=== PATIENT | female | born 1965 | race Hispanic/Latino ===

== ENCOUNTER 2017-05-12 11:06 | Inpatient (IN) | payer OTHER, MEDICARE ==
[~2017-05-12] VITALS: Ht 157.5 cm; Wt 82.0 kg
[~2017-05-12 11:06] MED LIST: GABA-531 PO; METR500T PO; QUET300T44 PO; SERT100T12 PO; Simethicone PO
[2017-05-12 11:30] LABS: APPEARANCE,URINE Clear (CLEAR); BILIRUBIN,URINE Negative (NEGATIVE); COLOR,URINE Dark Yellow (YELLOW); GLUCOSE, URINE (UA) Negative (NEGATIVE); KETONES,URINE Negative (NEGATIVE); LEUKOCYTE ESTERASE ,URINE Trace (NEGATIVE); NITRATE,URINE Negative (NEGATIVE); OCCULT BLOOD,URINE Negative (NEGATIVE); PH,URINE 5.5 (5.0-8.0); PROTEIN,URINE Negative (NEGATIVE)
[2017-05-12 11:35] LABS: BASOPHILS % (AUTO) 0.3 % (0.0-5.0); EOSINOPHILS % (AUTO) 1.2 % (0.0-8.0); HEMATOCRIT 41.1 % (36-48); LYMPHOCYTES % (AUTO) 17.2 % (21.0-51.0); MEAN CORPUSCULAR HEMOGLOBIN 30.9 pg (27.0-33.0); MEAN CORPUSCULAR HGB CONC 34.9 g/dL (32.0-36.0); MEAN CORPUSCULAR VOLUME 88.5 fL (79-99); MONOCYTES % (AUTO) 5.5 % (3.0-13.0); NEUTROPHILS % (AUTO) 75.8 % (40.0-77.0); PLATELET COUNT (AUTO) 246 K/uL (130-400); RED BLOOD CELL COUNT(AUTO) 4.65 MIL/uL (4.00-5.50); RED CELL DISTRIBUTION WIDTH 13.1 % (11.0-15.5); WHITE BLOOD COUNT (AUTO) 17.2 K/uL (4.8-10.8)
[2017-05-12] MEDS ORDERED: KETOROLAC TROMETHAMINE 30MG/ML ONE (11:40)
[2017-05-12] MEDS ORDERED: ONDANSETRON HCL 4 MG/2 ML VIAL ONE (11:40)
[2017-05-12] MEDS ORDERED: SODIUM CHLORIDE 0.9% 1000ML 1,000 ML IV ONE (11:40)
[2017-05-12 11:42] LABS: CREATININE 0.8 mg/dL (0.5-1.5); POTASSIUM 3.6 mmol/L (3.5-5.1)
[2017-05-12 11:43] LABS: BACTERIA,URINE Rare /HPF (None Seen); MUCUS,URINE Many LPF (None Seen); RBC,URINE 0-1 /HPF (0-1); SQUAMOUS EPITHELIAL CELL,UR Rare /LPF (0-2); WBC,URINE 0-1 /HPF (0-1)
[2017-05-12 11:47] LABS: ALBUMIN 3.5 g/dL (3.5-5.0); BILIRUBIN,TOTAL 0.9 mg/dL (0.2-1.0); TOTAL PROTEIN, SERUM 7.9 g/dL (6.0-8.3)
[2017-05-12] MEDS ORDERED: METRONIDAZOLE 500MG/100ML BAG 100 ML ONE ×2 (13:37→21:48)
[2017-05-12] MEDS ORDERED: MORPHINE SULFATE 2 MG/ML 1ML SYG ONE ×4 (13:38→21:49)
[2017-05-12] MEDS ORDERED: DICYCLOMINE HCL 10 MG/ML 2ML AMP IM ONE (14:46)
[2017-05-12] MEDS ORDERED: DICYCLOMINE HCL 20 MG TAB ONE (14:50)
[2017-05-12] MEDS ORDERED: LEVOFLOXACIN 500 MG/D5W 100 ML 100 ML ONE (14:54)
[2017-05-12] MEDS ORDERED: ACETAMINOPHEN 325 MG TAB ONE (23:14)
[2017-05-12 23:22] VITALS: BP 136/88
[2017-05-12] MEDS ORDERED: MORPHINE-NS 50 MG/50 ML 50 ML IV ONE (23:31)
[2017-05-13] MEDS ORDERED: MAG HYDROX/AL HYDROX/SIMETH ES 30 ML SUSP UDCUP PO PRN (01:15)
[2017-05-13] MEDS ORDERED: POTASSIUM CHLORIDE 20MEQ/100ML 100 ML IV PRN (01:15)
[2017-05-13] MEDS ORDERED: ACETAMINOPHEN 325 MG TAB PO PRN ×2 (01:15)
[2017-05-13] MEDS ORDERED: POTASSIUM CHLORIDE 20 MEQ ERTAB PO PRN (01:15)
[2017-05-13] MEDS: SODIUM CHLORIDE 0.9% 1000ML 1,000 ML IV SCH ×2 (01:15→05:47)
[2017-05-13] MEDS ORDERED: CLONIDINE HCL 0.1 MG TABLET PO PRN (01:15)
[2017-05-13] MEDS ORDERED: GUAIFENESIN-DM 200/20 MG 10 ML PO PRN (01:15)
[2017-05-13] MEDS ORDERED: LIDOCAINE HCL-MPF 1% 2ML VIAL IJ PRN (01:15)
[2017-05-13] MEDS ORDERED: NITROGLYCERIN 0.4 MG SL TAB SL PRN (01:15)
[2017-05-13] MEDS ORDERED: GUAIFENESIN SUGAR-FREE 100 MG/5 ML UDCUP PO PRN (01:15)
[2017-05-13] MEDS ORDERED: LACTULOSE 20 GM/30 ML UDCUP PO PRN (01:15)
[2017-05-13] MEDS ORDERED: POTASSIUM CHLORIDE 10% ELIXIR 20 MEQ/15 ML UDCUP PO PRN (01:15)
[2017-05-13] MEDS ORDERED: ONDANSETRON HCL 4 MG/2 ML VIAL IVP PRN (01:15)
[2017-05-13] MEDS ORDERED: ZOLPIDEM TARTRATE 5 MG TAB PO PRN (01:15)
[2017-05-13] MEDS ORDERED: DiphenhydrAMINE HCL 50 MG/ML VIAL IVP PRN (01:15)
[2017-05-13] MEDS ORDERED: DIPHENHYDRAMINE HCL 25 MG CAPSULE PO PRN (01:15)
[2017-05-13] MEDS ORDERED: MORPHINE-NS 50 MG/50 ML 50 ML IV PRN (01:30)
[2017-05-13] MEDS ORDERED: NALOXONE HCL 0.4 MG/1 ML ML IVP PRN (01:30)
[2017-05-13] MEDS: METRONIDAZOLE 500MG/100ML BAG 100 ML IVPB SCH ×3 (01:30→18:14)
[2017-05-13 03:05] VITALS: BP 102/67
[2017-05-13 04:16] LABS: HEMATOCRIT 34.8 % (36-48); MEAN CORPUSCULAR HEMOGLOBIN 31.4 pg (27.0-33.0); MEAN CORPUSCULAR HGB CONC 35.4 g/dL (32.0-36.0); MEAN CORPUSCULAR VOLUME 88.6 fL (79-99); PLATELET COUNT (AUTO) 219 K/uL (130-400); RED BLOOD CELL COUNT(AUTO) 3.92 MIL/uL (4.00-5.50); RED CELL DISTRIBUTION WIDTH 13.2 % (11.0-15.5); WHITE BLOOD COUNT (AUTO) 12.5 K/uL (4.8-10.8)
[2017-05-13 04:21] LABS: CREATININE 0.8 mg/dL (0.5-1.5); POTASSIUM 3.7 mmol/L (3.5-5.1)
[2017-05-13 07:00] VITALS: BP 111/63
[2017-05-13 11:05] VITALS: BP 105/73
[2017-05-13] MEDS ORDERED: LEVOFLOXACIN 500 MG/D5W 100 ML 100 ML IV SCH (13:00)
[2017-05-13 15:00] VITALS: BP 116/78
[2017-05-13 19:42] VITALS: BP 128/83
[2017-05-14 00:11] VITALS: BP 128/76
[2017-05-14] MEDS ORDERED: KETOROLAC TROMETHAMINE 30MG/ML IV PRN (00:45)
[2017-05-14] MEDS: METRONIDAZOLE 500MG/100ML BAG 100 ML IVPB SCH ×3 (01:18→19:27)
[2017-05-14] MEDS: ZOSYN 3.375GM+NS 50ML 50 ML IV SCH ×3 (01:18→19:27)
[2017-05-14 03:30] VITALS: BP 112/74
[2017-05-14] MEDS: SODIUM CHLORIDE 0.9% 1000ML 1,000 ML IV SCH ×2 (04:55→17:15)
[2017-05-14 05:01] LABS: HEMATOCRIT 35.7 % (36-48); MEAN CORPUSCULAR HEMOGLOBIN 30.8 pg (27.0-33.0); MEAN CORPUSCULAR HGB CONC 34.6 g/dL (32.0-36.0); PLATELET COUNT (AUTO) 246 K/uL (130-400); RED BLOOD CELL COUNT(AUTO) 4.01 MIL/uL (4.00-5.50); RED CELL DISTRIBUTION WIDTH 12.8 % (11.0-15.5); WHITE BLOOD COUNT (AUTO) 9.1 K/uL (4.8-10.8)
[2017-05-14 05:17] LABS: ALBUMIN 2.7 g/dL (3.5-5.0); BILIRUBIN,TOTAL 0.4 mg/dL (0.2-1.0); CREATININE 0.8 mg/dL (0.5-1.5); POTASSIUM 3.3 mmol/L (3.5-5.1); TOTAL PROTEIN, SERUM 6.7 g/dL (6.0-8.3)
[2017-05-14 08:00] VITALS: BP 106/55
[2017-05-14] MEDS ORDERED: LIDOCAINE HCL-MPF 1% 2ML VIAL IJ PRN (08:00)
[2017-05-14] MEDS ORDERED: POTASSIUM CHLORIDE 20MEQ/100ML 100 ML IV PRN (08:00)
[2017-05-14] MEDS ORDERED: POTASSIUM CHLORIDE 10% ELIXIR 20 MEQ/15 ML UDCUP PO PRN (08:00)
[2017-05-14 12:00] VITALS: BP 121/65
[2017-05-14 16:00] VITALS: BP 129/70
[2017-05-14 20:00] VITALS: BP 124/73
[2017-05-15] VITALS (7 sets, daily range): BP systolic 96–157; BP diastolic 50–91
[2017-05-15] MEDS: ZOSYN 3.375GM+NS 50ML 50 ML IV SCH ×4 (01:00→16:34)
[2017-05-15] MEDS: METRONIDAZOLE 500MG/100ML BAG 100 ML IVPB SCH ×3 (04:01→21:02)
[2017-05-15] MEDS: SODIUM CHLORIDE 0.9% 1000ML 1,000 ML IV SCH ×2 (06:51→19:55)
[2017-05-16] MEDS: METRONIDAZOLE 500MG/100ML BAG 100 ML IVPB SCH ×3 (01:11→17:38)
[2017-05-16] MEDS: ZOSYN 3.375GM+NS 50ML 50 ML IV SCH ×3 (01:11→17:38)
[2017-05-16 04:00] VITALS: BP 119/73
[2017-05-16 06:50] LABS: HEMATOCRIT 36.4 % (36-48); MEAN CORPUSCULAR HEMOGLOBIN 30.8 pg (27.0-33.0); MEAN CORPUSCULAR HGB CONC 34.7 g/dL (32.0-36.0); MEAN CORPUSCULAR VOLUME 88.8 fL (79-99); NUCLEATED RED BLOOD CELLS 0.1 % (0.0-0.19); PLATELET COUNT (AUTO) 327 K/uL (130-400); RED CELL DISTRIBUTION WIDTH 12.6 % (11.0-15.5)
[2017-05-16 07:07] LABS: ALBUMIN 2.8 g/dL (3.5-5.0); BILIRUBIN,TOTAL 0.4 mg/dL (0.2-1.0); CREATININE 0.9 mg/dL (0.5-1.5); POTASSIUM 3.4 mmol/L (3.5-5.1); TOTAL PROTEIN, SERUM 6.6 g/dL (6.0-8.3)
[2017-05-16 08:00] VITALS: BP 133/76
[2017-05-16] MEDS ORDERED: SERT100T12 PO (10:03)
[2017-05-16] MEDS ORDERED: GABA-531 PO (10:03)
[2017-05-16] MEDS ORDERED: QUET300T44 PO (10:03)
[2017-05-16] MEDS ORDERED: GABAPENTIN 300 MG CAPSULE PO PRN (10:15)
[2017-05-16] MEDS ORDERED: NON-FORMULARY MEDICATION 1 EACH (Sertraline HCl 200 MG) PO PRN (10:15)
[2017-05-16] MEDS ORDERED: QUETIAPINE FUMARATE 100 MG TAB PO PRN (10:15)
[2017-05-16 12:00] VITALS: BP 132/78
[2017-05-16 16:00] VITALS: BP 142/70
[2017-05-16] MEDS: POTASSIUM CHLORIDE 20 MEQ ERTAB PO PRN (17:37)
[2017-05-16 20:00] VITALS: BP 133/88
[2017-05-16] MEDS: SODIUM CHLORIDE 0.9% 1000ML 1,000 ML IV SCH ×2 (22:35→22:46)
[2017-05-16 23:43] VITALS: BP 140/81
[2017-05-17 03:52] VITALS: BP 148/91
[2017-05-17 05:28] LABS: HEMATOCRIT 37.6 % (36-48); MEAN CORPUSCULAR HEMOGLOBIN 30.3 pg (27.0-33.0); MEAN CORPUSCULAR HGB CONC 34.5 g/dL (32.0-36.0); MEAN CORPUSCULAR VOLUME 87.9 fL (79-99); PLATELET COUNT (AUTO) 321 K/uL (130-400); RED BLOOD CELL COUNT(AUTO) 4.27 MIL/uL (4.00-5.50); RED CELL DISTRIBUTION WIDTH 13.1 % (11.0-15.5); WHITE BLOOD COUNT (AUTO) 8.6 K/uL (4.8-10.8)
[2017-05-17 05:46] LABS: BILIRUBIN,TOTAL 0.3 mg/dL (0.2-1.0); CREATININE 0.8 mg/dL (0.5-1.5); POTASSIUM 3.6 mmol/L (3.5-5.1); TOTAL PROTEIN, SERUM 6.7 g/dL (6.0-8.3)
[2017-05-17] MEDS: ZOSYN 3.375GM+NS 50ML 50 ML IV SCH ×3 (07:17→17:41)
[2017-05-17] MEDS: METRONIDAZOLE 500MG/100ML BAG 100 ML IVPB SCH ×3 (07:17→16:46)
[2017-05-17 07:59] VITALS: BP 141/87
[2017-05-17] MEDS: POTASSIUM CHLORIDE 20 MEQ ERTAB PO PRN ×2 (09:15→12:06)
[2017-05-17 11:56] VITALS: BP 137/86
[2017-05-17] MEDS: SODIUM CHLORIDE 0.9% 1000ML 1,000 ML IV SCH (12:06)
[2017-05-17 15:58] VITALS: BP 127/73
[2017-05-17 20:00] VITALS: BP 117/85
[2017-05-17 23:39] VITALS: BP 133/71
[2017-05-18] MEDS: ZOSYN 3.375GM+NS 50ML 50 ML IV SCH ×2 (01:21→09:00)
[2017-05-18] MEDS: SODIUM CHLORIDE 0.9% 1000ML 1,000 ML IV SCH (01:21)
[2017-05-18] MEDS: METRONIDAZOLE 500MG/100ML BAG 100 ML IVPB SCH ×2 (01:21→09:29)
[2017-05-18 03:52] VITALS: BP 151/89
[2017-05-18 08:00] VITALS: BP 140/87
== END 2017-05-18 10:15 | disposition home or self-care (01) | DRG 872 ==
LOC: EDH 11:06 → EDHIP 13:53 → 3CH 21:55
PROVIDERS: ADMIT Internal Medicine; ATTEND Internal Medicine
DX: A41.9 Sepsis, unspecified organism (principal); K57.92 Diverticulitis of intestine, part unspecified, without perforation or abscess without bleeding; D72.829 Elevated white blood cell count, unspecified; E86.0 Dehydration; E87.6 Hypokalemia; I10 Essential (primary) hypertension; I25.10 Atherosclerotic heart disease of native coronary artery without angina pectoris; F41.9 Anxiety disorder, unspecified; G89.29 Other chronic pain; M54.9 Dorsalgia, unspecified; Z90.710 Acquired absence of both cervix and uterus; Z98.51 Tubal ligation status; Z80.2 Family history of malignant neoplasm of other respiratory and intrathoracic organs; Z80.8 Family history of malignant neoplasm of other organs or systems; Z82.0 Family history of epilepsy and other diseases of the nervous system; Z82.49 Family history of ischemic heart disease and other diseases of the circulatory system; Z82.5 Family history of asthma and other chronic lower respiratory diseases; Z83.3 Family history of diabetes mellitus
CPT/HCPCS: 36415; 74176; 80048; 80053; 81001; 82150; 83690; 85025; 85027; J0500; J1885; J1956; J2270; J2405; J2543; J3480; J3490; J7030

== ENCOUNTER → 2017-08-04 | Outpatient (CLI) | payer OTHER, MEDICARE ==
[~2017-08-04] MED LIST changes: -METR500T PO; -Simethicone PO
== END ==
LOC: RAH 15:25
PROVIDERS: ATTEND Internal Medicine
DX: N20.0 Calculus of kidney (principal); T81.31XS Disruption of external operation (surgical) wound, not elsewhere classified, sequela
CPT/HCPCS: 74176

== ENCOUNTER 2018-02-24 20:08 | Emergency (ER) | payer OTHER, MEDICARE ==
[2018-02-24 20:32] LABS: BASOPHILS % (AUTO) 0.5 % (0.0-5.0); EOSINOPHILS % (AUTO) 3.7 % (0.0-8.0); HEMATOCRIT 41.9 % (36-48); LYMPHOCYTES % (AUTO) 40.3 % (21.0-51.0); MEAN CORPUSCULAR HEMOGLOBIN 30.3 pg (27.0-33.0); MEAN CORPUSCULAR HGB CONC 33.7 g/dL (32.0-36.0); MONOCYTES % (AUTO) 7.7 % (3.0-13.0); NEUTROPHILS % (AUTO) 47.8 % (40.0-77.0); NUCLEATED RED BLOOD CELLS 0.1 % (0.0-0.19); PLATELET COUNT (AUTO) 227 K/uL (130-400); RED BLOOD CELL COUNT(AUTO) 4.66 MIL/uL (4.00-5.50); RED CELL DISTRIBUTION WIDTH 12.7 % (11.0-15.5); WHITE BLOOD COUNT (AUTO) 7.4 K/uL (4.8-10.8)
[2018-02-24 20:58] LABS: B-TYPE NATRIURETIC PEPTIDE < 5 pg/mL (0-100)
[2018-02-24 21:04] LABS: CREATININE 0.8 mg/dL (0.5-1.5); POTASSIUM 3.8 mmol/L (3.5-5.1)
[2018-02-24 21:10] LABS: ALBUMIN 3.7 g/dL (3.5-5.0); BILIRUBIN,TOTAL 0.2 mg/dL (0.2-1.0); TOTAL PROTEIN, SERUM 7.5 g/dL (6.0-8.3)
[2018-02-24] MEDS ORDERED: ASPIRIN 325 MG TABLET ONE (21:12)
== END 2018-02-24 23:22 | disposition home or self-care (01) ==
LOC: EDH 20:08
DX: R07.89 Other chest pain (principal); I10 Essential (primary) hypertension; F41.9 Anxiety disorder, unspecified; K76.0 Fatty (change of) liver, not elsewhere classified; G89.29 Other chronic pain; E78.5 Hyperlipidemia, unspecified; Z90.710 Acquired absence of both cervix and uterus; Z98.51 Tubal ligation status; Z98.890 Other specified postprocedural states
CPT/HCPCS: 36415; 71045; 80053; 82550; 83880; 84484; 85025; 85378; 93005; 94761

== ENCOUNTER → 2018-06-10 | Outpatient (CLI) | payer OTHER, MEDICARE | END | disposition home or self-care (01) | LOC: RAH 16:12 | PROVIDERS: ATTEND Internal Medicine | DX: I10 Essential (primary) hypertension (principal); I70.0 Atherosclerosis of aorta; M47.814 Spondylosis without myelopathy or radiculopathy, thoracic region | CPT/HCPCS: 71045 ==

== ENCOUNTER → 2018-07-04 | Outpatient (CLI) | payer OTHER, MEDICARE ==
[~2018-07-04] MED LIST changes: +IOHEXOL-350 75 ML VIAL IV ONE
== END | disposition home or self-care (01) ==
LOC: RAH 07:26
PROVIDERS: ATTEND Internal Medicine Gastroenterology
DX: K57.32 Diverticulitis of large intestine without perforation or abscess without bleeding (principal); K40.90 Unilateral inguinal hernia, without obstruction or gangrene, not specified as recurrent; M19.90 Unspecified osteoarthritis, unspecified site; Z90.49 Acquired absence of other specified parts of digestive tract
CPT/HCPCS: 74178; Q9967

== ENCOUNTER → 2018-09-14 | Outpatient (CLI) | payer OTHER, MEDICARE ==
[~2018-09-14] MED LIST changes: -IOHEXOL-350 75 ML VIAL IV ONE
== END | disposition home or self-care (01) ==
LOC: OIH 10:53
PROVIDERS: ATTEND Internal Medicine
DX: M77.32 Calcaneal spur, left foot (principal)
CPT/HCPCS: 73620

== ENCOUNTER 2018-10-09 00:33 | Observation (INO) | payer OTHER, MEDICARE ==
[~2018-10-09] VITALS: Ht 157.5 cm; Wt 81.6 kg
[2018-10-09] MEDS ORDERED: ASPIRIN 325 MG TABLET ONE (00:43)
[2018-10-09 00:53] LABS: BASOPHILS % (AUTO) 0.5 % (0.0-5.0); EOSINOPHILS % (AUTO) 3.7 % (0.0-8.0); HEMATOCRIT 42.6 % (36-48); LYMPHOCYTES % (AUTO) 40.7 % (21.0-51.0); MEAN CORPUSCULAR HEMOGLOBIN 31.8 pg (27.0-33.0); MEAN CORPUSCULAR HGB CONC 34.9 g/dL (32.0-36.0); MEAN CORPUSCULAR VOLUME 91.2 fL (79-99); MONOCYTES % (AUTO) 6.6 % (3.0-13.0); NEUTROPHILS % (AUTO) 48.5 % (40.0-77.0); PLATELET COUNT (AUTO) 254 K/uL (130-400); RED BLOOD CELL COUNT(AUTO) 4.67 MIL/uL (4.00-5.50); RED CELL DISTRIBUTION WIDTH 12.9 % (11.0-15.5); WHITE BLOOD COUNT (AUTO) 8.6 K/uL (4.8-10.8)
[2018-10-09 01:00] LABS: CREATININE 0.7 mg/dL (0.5-1.5); POTASSIUM 3.4 mmol/L (3.5-5.1)
[2018-10-09 01:04] LABS: INR 0.91 (0.85-1.15); PARTIAL THROMBOPLASTIN TIME 26.4 SEC (26.3-35.5); PROTHROMBIN TIME 9.6 SEC (9.6-11.6)
[2018-10-09 01:11] LABS: ALBUMIN 3.7 g/dL (3.5-5.0); BILIRUBIN,TOTAL 0.2 mg/dL (0.2-1.0); TOTAL PROTEIN, SERUM 7.8 g/dL (6.0-8.3)
[2018-10-09] MEDS ORDERED: ENOXAPARIN SODIUM 40 MG/0.4 ML SYRINGE SQ ONE (08:20)
[2018-10-09] MEDS ORDERED: CLOPIDOGREL BISULFATE 75 MG TAB ONE (12:30)
[2018-10-09] MEDS ORDERED: MORPHINE SULFATE 4 MG/1ML SYG ONE (12:31)
[2018-10-09] MEDS ORDERED: MORPHINE SULFATE 4 MG/1ML SYG IVP PRN (17:15)
[2018-10-09 17:36] VITALS: BP 129/73
[2018-10-09] MEDS ORDERED: CORTSOL AD (18:58)
[2018-10-09] MEDS ORDERED: ASCO10007 PO (18:58)
[2018-10-09] MEDS ORDERED: FLUT1BLS IH (18:58)
[2018-10-09] MEDS ORDERED: ATOR40TA69 PO (18:58)
[2018-10-09] MEDS ORDERED: ICOS1CAP PO (18:58)
[2018-10-09] MEDS ORDERED: CETI10TA57 PO (18:58)
[2018-10-09] MEDS ORDERED: CETIRIZINE HCL 5 MG TABLET PO PRN (19:15)
[2018-10-09 20:00] VITALS: BP 113/67
[2018-10-09] MEDS: ENOXAPARIN SODIUM 40 MG/0.4 ML SYRINGE SQ SCH (20:24)
[2018-10-09] MEDS: NEOMYCIN/POLYMYXIN/HC OTIC SUSP 10ML BOTTLE AD SCH (20:27)
[2018-10-09] MEDS: **HM**(Icosapent Ethyl (Vascepa) 1 GM PO SCH (20:27)
[2018-10-09] MEDS ORDERED: ATORVASTATIN CALCIUM 40 MG TABLET PO SCH (21:00)
[2018-10-09 23:15] VITALS: BP 117/76
[2018-10-10 03:57] VITALS: BP 120/74
[2018-10-10 05:36] LABS: BASOPHILS % (AUTO) 0.3 % (0.0-5.0); EOSINOPHILS % (AUTO) 4.7 % (0.0-8.0); LYMPHOCYTES % (AUTO) 39.1 % (21.0-51.0); MEAN CORPUSCULAR HEMOGLOBIN 31.7 pg (27.0-33.0); MEAN CORPUSCULAR HGB CONC 34.8 g/dL (32.0-36.0); MEAN CORPUSCULAR VOLUME 91.2 fL (79-99); MONOCYTES % (AUTO) 5.9 % (3.0-13.0); NUCLEATED RED BLOOD CELLS 0.1 % (0.0-0.19); PLATELET COUNT (AUTO) 224 K/uL (130-400); RED BLOOD CELL COUNT(AUTO) 4.61 MIL/uL (4.00-5.50); RED CELL DISTRIBUTION WIDTH 12.9 % (11.0-15.5); WHITE BLOOD COUNT (AUTO) 6.9 K/uL (4.8-10.8)
[2018-10-10 05:44] LABS: CREATININE 0.8 mg/dL (0.5-1.5); POTASSIUM 3.9 mmol/L (3.5-5.1)
[2018-10-10 08:00] VITALS: BP 141/88
[2018-10-10] MEDS: ENOXAPARIN SODIUM 40 MG/0.4 ML SYRINGE SQ SCH (09:00)
[2018-10-10] MEDS ORDERED: CLOPIDOGREL BISULFATE 75 MG TAB PO SCH (09:00)
[2018-10-10] MEDS: **HM**(Icosapent Ethyl (Vascepa) 1 GM PO SCH (09:00)
[2018-10-10] MEDS ORDERED: ASCORBIC ACID 500 MG TAB PO SCH (09:00)
[2018-10-10] MEDS: NEOMYCIN/POLYMYXIN/HC OTIC SUSP 10ML BOTTLE AD SCH (09:00)
[2018-10-10] MEDS ORDERED: BREO ELLIPTA IH PRN (09:00)
[2018-10-10] MEDS ORDERED: ASPIRIN 81MG TAB.CHEW PO SCH (09:00)
[2018-10-10 11:00] VITALS: BP 128/80
== END 2018-10-10 11:44 | disposition home or self-care (01) ==
LOC: EDH 00:33 → EDHIP 02:03 → 4BH 16:36
PROVIDERS: ADMIT Internal Medicine; ATTEND Internal Medicine
DX: I24.9 Acute ischemic heart disease, unspecified (principal); E11.9 Type 2 diabetes mellitus without complications; E78.5 Hyperlipidemia, unspecified; I10 Essential (primary) hypertension; K76.0 Fatty (change of) liver, not elsewhere classified; F41.9 Anxiety disorder, unspecified; E87.6 Hypokalemia; I25.2 Old myocardial infarction; Z90.710 Acquired absence of both cervix and uterus; Z98.51 Tubal ligation status; Z79.899 Other long term (current) drug therapy
CPT/HCPCS: 36415 ×2; 71045; 80048; 80053; 82550 ×2; 82948 ×4; 83690; 83874; 84484 ×3; 85025 ×2; 85610; 85730; 93005; 96372; 96374; 99284; G0378 ×34; J1650 ×2; J2270 ×3

== ENCOUNTER → 2018-12-21 | Outpatient (CLI) | payer OTHER, MEDICARE ==
[~2018-12-21] MED LIST changes: +ASCO10007 PO; +ATOR40TA69 PO; +CETI10TA57 PO; +CORTSOL AD; +FLUT1BLS IH; -GABA-531 PO; +ICOS1CAP PO; -QUET300T44 PO; -SERT100T12 PO
== END | disposition home or self-care (01) ==
LOC: OIH 13:35
PROVIDERS: ATTEND Internal Medicine
DX: I10 Essential (primary) hypertension (principal)
CPT/HCPCS: 71046

== ENCOUNTER → 2019-03-13 | Outpatient (CLI) | payer OTHER, MEDICARE | END | disposition home or self-care (01) | LOC: OIH 08:31 | PROVIDERS: ATTEND Internal Medicine | DX: M47.816 Spondylosis without myelopathy or radiculopathy, lumbar region (principal); M16.12 Unilateral primary osteoarthritis, left hip; M85.88 Other specified disorders of bone density and structure, other site; M41.86 Other forms of scoliosis, lumbar region | CPT/HCPCS: 72100; 73502 ==

== ENCOUNTER → 2021-02-13 | Outpatient (CLI) | payer OTHER, MEDICARE ==
[~2021-02-13] MED LIST changes: +ASCO100031 PO; -ASCO10007 PO
== END | disposition home or self-care (01) ==
LOC: OIH 15:27
PROVIDERS: ATTEND Internal Medicine
DX: M85.871 Other specified disorders of bone density and structure, right ankle and foot (principal); M25.474 Effusion, right foot
CPT/HCPCS: 73620

== ENCOUNTER → 2021-09-10 | Outpatient (CLI) | payer MEDICARE ==
[2021-09-10 10:12] LABS: CREATININE 0.8 mg/dL (0.5-1.5)
== END ==
LOC: LAB 09:06
PROVIDERS: ATTEND Student in an Organized Health Care Education/Training Program
DX: K46.9 Unspecified abdominal hernia without obstruction or gangrene (principal)
CPT/HCPCS: 36415; 82565; 84520

== ENCOUNTER → 2021-09-11 | Outpatient (CLI) | payer MEDICARE ==
[~2021-09-11] MED LIST changes: +IOHEXOL 350 MG/ML 100ML INFUS..BTL IV ONE
== END | disposition home or self-care (01) ==
LOC: RAH 08:22
PROVIDERS: ATTEND Student in an Organized Health Care Education/Training Program
DX: K43.9 Ventral hernia without obstruction or gangrene (principal); K46.9 Unspecified abdominal hernia without obstruction or gangrene; K76.0 Fatty (change of) liver, not elsewhere classified; Z98.82 Breast implant status
CPT/HCPCS: 74177; Q9967

== ENCOUNTER 2021-11-17 06:40 | Inpatient (IN) | payer MEDICARE ==
[2021-11-14] MEDS: CEFAZOLIN SODIUM 2 GM VIAL IV SCH (07:00)
[2021-11-14 11:38] LABS: BASOPHILS % (AUTO) 0.5 % (0.0-5.0); EOSINOPHILS % (AUTO) 4.8 % (0.0-8.0); HEMATOCRIT 42.5 % (36-48); LYMPHOCYTES % (AUTO) 39.1 % (21.0-51.0); MEAN CORPUSCULAR HEMOGLOBIN 30.5 pg (27.0-33.0); MEAN CORPUSCULAR HGB CONC 33.4 g/dL (32.0-36.0); MEAN CORPUSCULAR VOLUME 91.2 fL (79-99); MONOCYTES % (AUTO) 6.8 % (3.0-13.0); NEUTROPHILS % (AUTO) 48.6 % (40.0-77.0); PLATELET COUNT (AUTO) 241 K/uL (130-400); RED BLOOD CELL COUNT(AUTO) 4.66 MIL/uL (4.00-5.50); RED CELL DISTRIBUTION WIDTH 12.4 % (11.0-15.5)
[2021-11-14 11:49] LABS: CREATININE 0.8 mg/dL (0.5-1.5); POTASSIUM 3.7 mmol/L (3.5-5.1)
[2021-11-14 11:54] LABS: ALBUMIN 3.7 g/dL (3.5-5.0); TOTAL PROTEIN, SERUM 7.4 g/dL (6.0-8.3)
[2021-11-14 15:52] VITALS: BP 132/77
[2021-11-15] MEDS: CEFAZOLIN SODIUM 2 GM VIAL IV SCH (13:30)
[~2021-11-17] VITALS: Ht 157.5 cm; Wt 84.1 kg
[2021-11-17] VITALS (23 sets, daily range): BP systolic 123–151; BP diastolic 61–92
[~2021-11-17 06:40] MED LIST changes: -ASCO100031 PO; +BACL10TA PO; +CELE-84 PO; -CETI10TA57 PO; -CORTSOL AD; -FLUT1BLS IH; +GABA300C PO; +HYDR-4068 PO; -ICOS1CAP PO; -IOHEXOL 350 MG/ML 100ML INFUS..BTL IV ONE; +METF-444 PO; +PROP10TA10 PO; +VITAMIN C PO; +VITAMIN D2 PO; +[UNRECOGNIZED DRUG - OTHER] PO
[2021-11-17] MEDS ORDERED: CEFAZOLIN SODIUM 1 GM VIAL ONE (06:54)
[2021-11-17] MEDS ORDERED: LACTATED RINGERS 1000ML 0 ML IV ONE (06:55)
[2021-11-17] MEDS ORDERED: 0.9%NACL 1000ML 1,000 ML IV ONE (06:57)
[2021-11-17] MEDS ORDERED: DEXAMETHASONE SOD PHOSPHATE 10MG/ML 1ML VIAL ONE (09:47)
[2021-11-17] MEDS ORDERED: SUCCINYLCHOLINE CHLORIDE 20 MG/ML 10 ML VIAL ONE (09:47)
[2021-11-17] MEDS ORDERED: LIDOCAINE PF 100MG/5ML (2%) SYRINGE 5ML ONE (09:47)
[2021-11-17] MEDS ORDERED: GLYCOPYRROLATE 1 MG/5 ML SYRINGE ONE (09:48)
[2021-11-17] MEDS ORDERED: NEOSTIGMINE 5MG/5ML SYR IV ONE (09:48)
[2021-11-17] MEDS ORDERED: MIDAZOLAM HCL 1 MG/ML 2ML VIAL ONE (09:48)
[2021-11-17] MEDS ORDERED: PROPOFOL 10 MG/ML 20ML VIAL IV ONE (09:48)
[2021-11-17] MEDS ORDERED: ONDANSETRON 4MG INJ ONE (09:48)
[2021-11-17] MEDS ORDERED: ROCURONIUM 10MG/1ML SYR 10 MG/ML ML ONE ×2 (09:48→11:47)
[2021-11-17] MEDS ORDERED: FENTANYL CITRATE PF 50 MCG/1 ML 2ML VIAL ONE (09:49)
[2021-11-17] MEDS: CEFAZOLIN SODIUM 2 GM VIAL IV SCH ×2 (11:15→13:30)
[2021-11-17] MEDS ORDERED: METOCLOPRAMIDE 10 MG/2 ML VIAL ONE (11:45)
[2021-11-17] MEDS ORDERED: MEPERIDINE-PF 25 MG/ML SYG ONE ×3 (12:16→13:24)
[2021-11-17] MEDS ORDERED: BUPIVACAINE/PF 0.25% 30ML VIAL IJ ONE (12:25)
[2021-11-17] MEDS ORDERED: KETOROLAC 30MG VIAL (30MG/ML) ONE (12:31)
[2021-11-17] MEDS ORDERED: CELECOXIB 200 MG CAP PO PRN (14:30)
[2021-11-17] MEDS ORDERED: HYDROCODONE/ACETAMINOPHEN 10/325 MG TAB PO PRN (14:30)
[2021-11-17] MEDS: ERGOCALCIFEROL (VITAMIN D2) 50,000 UNIT CAPSULE PO SCH (14:30)
[2021-11-17] MEDS ORDERED: GABAPENTIN 300 MG CAPSULE PO PRN (14:30)
[2021-11-17] MEDS ORDERED: MORPHINE 4 MG SYG ONE (15:14)
[2021-11-17] MEDS ORDERED: TRAMADOL HCL 50 MG TABLET PO PRN (16:00)
[2021-11-17] MEDS: GABAPENTIN 300 MG CAPSULE PO SCH ×2 (16:45→20:05)
[2021-11-17] MEDS: ONDANSETRON 4MG INJ IVP PRN (20:04)
[2021-11-17] MEDS: MORPHINE 4 MG SYG IVP PRN (20:04)
[2021-11-17] MEDS: ATORVASTATIN 40 MG TABLET PO SCH (20:04)
[2021-11-17] MEDS: METFORMIN HCL 500 MG TABLET PO SCH (20:04)
[2021-11-17] MEDS: BACLOFEN 10 MG TABLET PO SCH (20:05)
[2021-11-17] MEDS: PROPRANOLOL HCL 10 MG TAB PO SCH (20:05)
[2021-11-18] VITALS (7 sets, daily range): BP systolic 101–129; BP diastolic 62–84
[2021-11-18] MEDS: MORPHINE 4 MG SYG IVP PRN ×3 (01:00→09:18)
[2021-11-18 04:59] LABS: HEMATOCRIT 38.7 % (36-48); MEAN CORPUSCULAR HEMOGLOBIN 30.3 pg (27.0-33.0); MEAN CORPUSCULAR HGB CONC 33.1 g/dL (32.0-36.0); MEAN CORPUSCULAR VOLUME 91.7 fL (79-99); RED BLOOD CELL COUNT(AUTO) 4.22 MIL/uL (4.00-5.50); RED CELL DISTRIBUTION WIDTH 12.6 % (11.0-15.5); WHITE BLOOD COUNT (AUTO) 17.5 K/uL (4.8-10.8)
[2021-11-18 05:25] LABS: CREATININE 0.8 mg/dL (0.5-1.5); POTASSIUM 4.2 mmol/L (3.5-5.1)
[2021-11-18] MEDS: ONDANSETRON 4MG INJ IVP PRN (05:54)
[2021-11-18] MEDS: BACLOFEN 10 MG TABLET PO SCH ×3 (08:28→20:34)
[2021-11-18] MEDS: GABAPENTIN 300 MG CAPSULE PO SCH ×3 (08:28→20:34)
[2021-11-18] MEDS: PROPRANOLOL HCL 10 MG TAB PO SCH ×3 (08:28→20:34)
[2021-11-18] MEDS: ASCORBIC ACID PO SCH (09:00)
[2021-11-18] MEDS: [UNRECOGNIZED DRUG - OTHER] PO SCH (09:00)
[2021-11-18] MEDS: ERGOCALCIFEROL (VITAMIN D2) 50,000 UNIT CAPSULE PO SCH (09:25)
[2021-11-18] MEDS: CEFAZOLIN SODIUM 2 GM VIAL IV SCH (13:30)
[2021-11-18] MEDS: METFORMIN HCL 500 MG TABLET PO SCH (20:34)
[2021-11-18] MEDS: ATORVASTATIN 40 MG TABLET PO SCH (20:34)
[2021-11-19] MEDS: MORPHINE 4 MG SYG IVP PRN (02:52)
[2021-11-19 04:49] VITALS: BP 143/75
[2021-11-19 08:00] VITALS: BP 143/93
[2021-11-19] MEDS ORDERED: GADOTERATE MEGLUMINE 10 MMOL/20 ML VIAL IV ONE (08:00)
[2021-11-19] MEDS ORDERED: ENOXAPARIN SODIUM 40 MG/0.4 ML SYRINGE SQ SCH (08:00)
[2021-11-19] MEDS: ASCORBIC ACID PO SCH (09:00)
[2021-11-19] MEDS: [UNRECOGNIZED DRUG - OTHER] PO SCH (09:00)
[2021-11-19] MEDS: PROPRANOLOL HCL 10 MG TAB PO SCH ×3 (09:56→22:03)
[2021-11-19] MEDS: GABAPENTIN 300 MG CAPSULE PO SCH ×3 (09:56→21:00)
[2021-11-19] MEDS: BACLOFEN 10 MG TABLET PO SCH ×3 (09:57→22:03)
[2021-11-19] MEDS ORDERED: ALPRAZOLAM 0.5 MG TABLET PO SCH (10:30)
[2021-11-19 11:32] VITALS: BP 126/79
[2021-11-19] MEDS: ONDANSETRON 4MG INJ IVP PRN (15:59)
[2021-11-19 16:00] VITALS: BP 113/73
[2021-11-19] MEDS: ATORVASTATIN 40 MG TABLET PO SCH (22:03)
[2021-11-19] MEDS: METFORMIN HCL 500 MG TABLET PO SCH (22:03)
[2021-11-19] MEDS: DOCUSATE SODIUM 100 MG CAP PO SCH (22:03)
[2021-11-20] VITALS: BP_SYST 130; BP_SYST 144; BP_DIAS 80; BP_DIAS 81
[2021-11-20 04:00] VITALS: BP 139/79
[2021-11-20] MEDS: [UNRECOGNIZED DRUG - OTHER] PO SCH (07:36)
[2021-11-20] MEDS: ASCORBIC ACID PO SCH (07:36)
[2021-11-20 07:58] VITALS: BP 149/84
[2021-11-20] MEDS: DOCUSATE SODIUM 100 MG CAP PO SCH ×2 (08:49→20:48)
[2021-11-20] MEDS: METOCLOPRAMIDE 5 MG TABLET PO SCH (08:49)
[2021-11-20] MEDS: PROPRANOLOL HCL 10 MG TAB PO SCH ×3 (08:49→20:50)
[2021-11-20] MEDS: GABAPENTIN 300 MG CAPSULE PO SCH ×3 (08:50→20:50)
[2021-11-20] MEDS: BACLOFEN 10 MG TABLET PO SCH ×3 (08:50→20:48)
[2021-11-20 11:21] VITALS: BP 150/84
[2021-11-20 16:00] VITALS: BP 119/73
[2021-11-20 20:00] VITALS: BP 136/77
[2021-11-20] MEDS: ATORVASTATIN 40 MG TABLET PO SCH (20:48)
[2021-11-20] MEDS: METFORMIN HCL 500 MG TABLET PO SCH (20:49)
[2021-11-21] VITALS: BP 122/71
[2021-11-21 04:00] VITALS: BP 130/69
[2021-11-21 08:00] VITALS: BP 136/92
[2021-11-21] MEDS: ASCORBIC ACID PO SCH (09:00)
[2021-11-21] MEDS: [UNRECOGNIZED DRUG - OTHER] PO SCH (09:00)
[2021-11-21] MEDS: METOCLOPRAMIDE 5 MG TABLET PO SCH (09:16)
[2021-11-21] MEDS: DOCUSATE SODIUM 100 MG CAP PO SCH (09:16)
[2021-11-21] MEDS: BACLOFEN 10 MG TABLET PO SCH (09:16)
[2021-11-21] MEDS: GABAPENTIN 300 MG CAPSULE PO SCH (09:16)
[2021-11-21] MEDS: PROPRANOLOL HCL 10 MG TAB PO SCH (09:17)
== END 2021-11-21 12:15 | disposition home or self-care (01) | DRG 355 ==
LOC: DAH 06:40 → DAHIP 06:41 → OBSVTOIN 06:41 → 4CH 14:04
PROVIDERS: ADMIT Student in an Organized Health Care Education/Training Program; ATTEND Student in an Organized Health Care Education/Training Program
PROC: 0WUF0JZ Supplement Abdominal Wall with Synthetic Substitute, Open Approach (ICD-10-PCS; principal; 2021-11-17 10:58)
DX: K43.2 Incisional hernia without obstruction or gangrene (principal); I10 Essential (primary) hypertension; F41.9 Anxiety disorder, unspecified; R07.89 Other chest pain; K66.0 Peritoneal adhesions (postprocedural) (postinfection); E11.9 Type 2 diabetes mellitus without complications; M19.90 Unspecified osteoarthritis, unspecified site; E78.00 Pure hypercholesterolemia, unspecified; Z83.3 Family history of diabetes mellitus; Z82.3 Family history of stroke; Z82.49 Family history of ischemic heart disease and other diseases of the circulatory system
CPT/HCPCS: 36415; 70450; 70553; 80048; 80053; 82948; 84484; 85025; 85027; 87426; 93005; 93971; G0378; J0330; J0690; J1100; J1650; J1885; J2001; J2175; J2250; J2270; J2405; J2704; J2710; J2765; J3010; J3490; J7030; J7120

== ENCOUNTER → 2022-07-28 | Outpatient (CLI) | payer MEDICARE ==
[~2022-07-28] MED LIST changes: +IOHEXOL 350 MG/ML 100ML INFUS..BTL IV ONE; +IOHEXOL-350 75 ML VIAL IV ONE
== END | disposition home or self-care (01) ==
LOC: RAH 07:25
PROVIDERS: ATTEND Surgery
DX: K76.0 Fatty (change of) liver, not elsewhere classified (principal); R94.5 Abnormal results of liver function studies; K31.84 Gastroparesis; E66.9 Obesity, unspecified; K43.9 Ventral hernia without obstruction or gangrene; Z90.49 Acquired absence of other specified parts of digestive tract
CPT/HCPCS: 74178; Q9967 ×2

== ENCOUNTER → 2023-06-10 | Outpatient (CLI) | payer MEDICARE ==
[~2023-06-10] MED LIST changes: +ASCO250T70 PO; +CELE-125 PO; -CELE-84 PO; +DIATR MEGLU/DIATRIZOATE SODIUM 30 ML BOTTLE ONE; +ERGO50CA PO; +FIBER PO; +FURO20TA4 PO; -HYDR-4068 PO; +HYDR30TA PO; +INUL1TAB4 PO; -IOHEXOL 350 MG/ML 100ML INFUS..BTL IV ONE; -IOHEXOL-350 75 ML VIAL IV ONE; +MULT-1192 PO; +MULT-1283 PO; -VITAMIN C PO; -VITAMIN D2 PO; -[UNRECOGNIZED DRUG - OTHER] PO
== END | disposition home or self-care (01) ==
LOC: RAH 08:48
PROVIDERS: ATTEND Surgery
DX: K44.9 Diaphragmatic hernia without obstruction or gangrene (principal); R10.13 Epigastric pain; R11.2 Nausea with vomiting, unspecified; K31.84 Gastroparesis
CPT/HCPCS: 74240; Q9963

== ENCOUNTER 2023-06-15 05:41 | Day surgery (SDC) | payer MEDICARE ==
[~2023-06-15] VITALS: Ht 157.5 cm; Wt 62.1 kg
[2023-06-15] VITALS (11 sets, daily range): BP systolic 111–127; BP diastolic 64–75; PULSE 56–71; RESP 14–16
[~2023-06-15 05:41] MED LIST changes: -DIATR MEGLU/DIATRIZOATE SODIUM 30 ML BOTTLE ONE; -FURO20TA4 PO; -GABA300C PO; -INUL1TAB4 PO; -METF-444 PO; -MULT-1283 PO; -PROP10TA10 PO
[2023-06-15] MEDS: 0.9%NACL 1000ML 1,000 ML IV ONE (06:35)
[2023-06-15] MEDS ORDERED: PROPOFOL 10 MG/ML 20ML VIAL IV ONE (07:08)
[2023-06-15] MEDS ORDERED: LIDOCAINE HCL 1% 20 ML VIAL ONE (07:08)
== END 2023-06-15 09:00 | disposition home or self-care (01) ==
LOC: DAH 05:41 → ENDO 05:41
PROVIDERS: ATTEND Surgery
DX: R10.13 Epigastric pain (principal); R11.2 Nausea with vomiting, unspecified; K31.84 Gastroparesis; K44.9 Diaphragmatic hernia without obstruction or gangrene; K21.00 Gastro-esophageal reflux disease with esophagitis, without bleeding; K31.89 Other diseases of stomach and duodenum; R94.5 Abnormal results of liver function studies; K91.1 Postgastric surgery syndromes; K43.9 Ventral hernia without obstruction or gangrene; M19.90 Unspecified osteoarthritis, unspecified site; E78.5 Hyperlipidemia, unspecified; F41.0 Panic disorder [episodic paroxysmal anxiety]; E11.43 Type 2 diabetes mellitus with diabetic autonomic (poly)neuropathy; E66.9 Obesity, unspecified; G47.30 Sleep apnea, unspecified; R45.851 Suicidal ideations; Z80.0 Family history of malignant neoplasm of digestive organs; Z90.49 Acquired absence of other specified parts of digestive tract; Z98.51 Tubal ligation status; Z90.89 Acquired absence of other organs; Z98.890 Other specified postprocedural states; Z90.710 Acquired absence of both cervix and uterus; Z98.84 Bariatric surgery status; Z83.3 Family history of diabetes mellitus; Z82.49 Family history of ischemic heart disease and other diseases of the circulatory system; Z68.25 Body mass index [BMI] 25.0-25.9, adult
CPT/HCPCS: 43239; J7030 ×2; J2704; A4620; A4215; A4223; A7002; A4222; A4221; A4663; A4606; J3490

== ENCOUNTER 2024-02-29 13:16 | Emergency (ER) | payer MEDICARE ==
[~2024-02-29] VITALS: Ht 157.5 cm; Wt 64.4 kg
[~2024-02-29 13:16] MED LIST changes: -ASCO250T70 PO; -CELE-125 PO; -ERGO50CA PO; +METF-526 PO; +OMEP40CA21 PO; +PROP10TA10 PO; +SUCR1TAB2 PO
[2024-02-29 15:39] LABS: BASOPHILS # (AUTO) 0.01 K/uL (0.00-0.20); BASOPHILS % (AUTO) 0.1 % (0.0-5.0); EOSINOPHILS # (AUTO) 0.27 K/uL (0.00-0.70); EOSINOPHILS % (AUTO) 2.7 % (0.0-8.0); HEMATOCRIT 40.3 % (36-48); IMMATURE GRANULOCYTE ABSOLUTE 0.04 K/uL (0-1); LYMPHOCYTES # (AUTO) 0.8 K/uL (1.0-4.8); LYMPHOCYTES % (AUTO) 8.1 % (21.0-51.0); MEAN CORPUSCULAR VOLUME 88.6 fL (79-99); MONOCYTES # (AUTO) 0.4 K/uL (0.1-1.0); MONOCYTES % (AUTO) 4.1 % (3.0-13.0); NEUTROPHILS # (AUTO) 8.5 K/uL (1.8-7.7); NEUTROPHILS % (AUTO) 84.6 % (40.0-77.0); PLATELET COUNT (AUTO) 218 K/uL (130-400); RED BLOOD CELL COUNT(AUTO) 4.55 MIL/uL (4.00-5.50); RED CELL DISTRIBUTION WIDTH 11.9 % (11.0-15.5)
[2024-02-29 15:51] LABS: CREATININE 0.8 mg/dL (0.5-1.0)
[2024-02-29] MEDS: FAMOTIDINE 20MG VIAL IV ONE (16:03)
[2024-02-29] MEDS: ondanSETRON 4MG INJ IVP ONE (16:03)
[2024-02-29] MEDS: DICYCLOMINE 20MG (10MG/ML) AMP IM ONE (16:03)
[2024-02-29] MEDS: LACTATED RINGERS 1000ML 1,000 ML IV ONE (16:04)
[2024-02-29] MEDS: acetaMINOPHEN 325 MG TAB PO ONE (16:04)
[2024-02-29] MEDS ORDERED: IOHEXOL-350 75 ML VIAL IV ONE (16:25)
[2024-02-29 17:14] LABS: APPEARANCE,URINE CLEAR (CLEAR); BILIRUBIN,URINE NEGATIVE (NEGATIVE); COLOR,URINE LIGHT-YELLOW (YELLOW); GLUCOSE, URINE (UA) NEGATIVE (NEGATIVE); KETONES,URINE NEGATIVE (NEGATIVE); LEUKOCYTE ESTERASE ,URINE 25 Leu/uL (NEGATIVE); NITRATE,URINE NEGATIVE (NEGATIVE); OCCULT BLOOD,URINE NEGATIVE (NEGATIVE); PROTEIN,URINE NEGATIVE (NEGATIVE); UROBILINOGEN,URINE 0.2 mg/dL (0.2-1.0)
[2024-02-29] MEDS ORDERED: DICL100G32 TP (17:22)
[2024-02-29] MEDS ORDERED: MAG-37 PO (17:22)
[2024-02-29] MEDS ORDERED: ACET-66 PO (17:22)
[2024-02-29] MEDS ORDERED: FAMO-136 PO (17:22)
[2024-02-29 17:23] LABS: ADD UA MICROSCOPIC YES
[2024-02-29 17:24] LABS: MUCUS,URINE RARE LPF (None Seen); SQUAMOUS EPITHELIAL CELL,UR RARE /HPF (0-2)
[2024-02-29 17:46] VITALS: BP 128/85; PULSE 80; RESP 18; TEMP 98.7; O2SAT 98
== END 2024-02-29 17:49 | disposition home or self-care (01) ==
LOC: EDH 13:16
DX: K52.9 Noninfective gastroenteritis and colitis, unspecified (principal); M79.642 Pain in left hand; E11.9 Type 2 diabetes mellitus without complications; E78.00 Pure hypercholesterolemia, unspecified; I10 Essential (primary) hypertension; Z79.899 Other long term (current) drug therapy
CPT/HCPCS: 99285; 74177; 96374; 96361; 96375; 84484; 80048; 83690; 85025; 81001; 36415; 73130; 93005; 96372; J7120; J3490; J2405; J0500; Q9967

== ENCOUNTER → 2024-08-24 | Outpatient (CLI) | payer MEDICARE ==
[~2024-08-24] MED LIST changes: +ACET-66 PO; +DICL100G32 TP; +FAMO-136 PO; +MAG-37 PO
--- NOTE | 2024-08-24 17:10 | HMCIMG ---
CT CHEST W/O CONTRAST HISTORY: Breast implants COMPARISON: 02/29/2004 TECHNIQUE: Multiple sequential axial images of the chest were obtained from the thoracic inlet through upper abdomen. Patient was not given contrast through intravenous route. FINDINGS: There is no evidence of pulmonary nodule or parenchymal disease. No pleural effusion or pericardial effusion is seen. Bilateral breast implants are seen. No definite CT evidence of leakage is seen. However, if needed, MRI or ultrasound correlation may be helpful. There is no evidence of pneumothorax. Normal sized mediastinal lymph nodes are seen. Post cholecystectomy changes are seen. The heart is not enlarged. Degenerative changes of the thoracolumbar spine are present. There is no evidence of adrenal nodule. Post gastric bypass surgical changes are seen. IMPRESSION: 1. No evidence of pulmonary nodule or effusion is seen. Bilateral breast implants without CT evidence of leakage. Intracapsular tear cannot be completely excluded however. CT was performed with one or more following dose reduction techniques: automated exposure control, adjustment of the mA and kv according to patient's size, or use of a iterative reconstruction technique.
== END | disposition home or self-care (01) ==
LOC: RAH 13:03
PROVIDERS: ATTEND Internal Medicine
DX: N62 Hypertrophy of breast (principal); T85.43XA Leakage of breast prosthesis and implant, initial encounter; M47.815 Spondylosis without myelopathy or radiculopathy, thoracolumbar region; Z98.82 Breast implant status; Y92.89 Other specified places as the place of occurrence of the external cause; Z90.49 Acquired absence of other specified parts of digestive tract
CPT/HCPCS: 71250

== ENCOUNTER → 2025-03-20 | Outpatient (CLI) | payer MEDICARE, MEDICAID ==
[~2025-03-20] MED LIST changes: -DICL100G32 TP; +DICL100G46 TP
--- NOTE | 2025-03-21 00:46 | HMCIMG ---
EXAM: MR Cervical Spine Without IV Contrast CLINICAL HISTORY: G95.9 / M54.12 / R29.898 ??? Cervical myelopathy, cervical radiculopathy, arm weakness. TECHNIQUE: Magnetic resonance images of the cervical spine were obtained without intravenous contrast in multiple planes. Series acquired: 3 ??? Sagittal T2 FRFSE (TR: 3491.0, TE: 119.4, Thk: 3.0) 4 ??? Sagittal T1 FSE (TR: 454.0, TE: 16.2, Thk: 3.0) 5 ??? Sagittal STIR (TR: 4349.0, TE: 39.6, Thk: 3.0) 8 ??? Axial T2 PROPELLER (TR: 5000.0, TE: 93.4, Thk: 3.0) 300???500 ??? Additional sagittal T1, T2, and STIR sequences for cord evaluation. CONTRAST: None. COMPARISON: None provided. FINDINGS: Alignment and Vertebrae: Straightening of cervical lordosis. Vertebral body heights maintained. Bone marrow signal intensity normal. No acute fracture or marrow infiltration. Intervertebral Discs: Multilevel intervertebral disc degeneration (Pfirrmann grades III???IV) with disc desiccation and height loss most pronounced at C4???C5 through C6???C7 levels. Endplates: Modic type II endplate changes at C5???C6 and Modic type I changes along the posterior aspect of C6???C7. Facet and Uncovertebral Joints: Facet and uncovertebral arthrosis (Pathria grades II???III), most pronounced at C4???C5 through C6???C7 on the left. Findings by Level: At C2???C3, disc height and hydration are preserved. No canal or foraminal stenosis. At C3???C4, minimal disc desiccation without herniation. Canal and foramina patent. At C4???C5, disc-osteophyte complex with left uncovertebral hypertrophy causing grade II central canal stenosis and grade II???III left neural foraminal stenosis with exiting nerve root compression. At C5???C6, diffuse disc-osteophyte complex and left uncovertebral arthrosis causing grade II central canal stenosis and grade III left neural foraminal stenosis with exiting root compression. At C6???C7, posterior disc-osteophyte complex and left uncovertebral hypertrophy resulting in grade II central canal stenosis with left foraminal narrowing and nerve root contact. At C7???T1, no significant disc abnormality or stenosis. Spinal Cord: Cervical cord demonstrates normal signal and contour. No T2 hyperintensity or myelomalacia. Ventral cord indentation evident at C4???C7 levels secondary to spondylotic canal narrowing. Paraspinal Soft Tissues: No paraspinal collection or abnormal mass. IMPRESSION: * Multilevel cervical spondylosis with intervertebral disc degeneration (Pfirrmann grades III???IV) and Modic type II endplate changes at C5???C6, Modic type I changes at posterior C6???C7. * Facet and uncovertebral arthrosis (Pathria grades II???III), most pronounced from C4???C5 to C6???C7 on the left. * Neural foraminal stenosis (Eleazar grades II???III) with exiting nerve root compression from C4???C5 to C5???C6 on the left and root contact at C6???C7 on the left. * Grade II central canal stenosis extending from C4???C5 through C6???C7 with ventral cord indentation, but no cord signal abnormality. * Radiologic???clinical correlation consistent with multilevel cervical spondylotic myeloradiculopathy, left-sided predominant. /Eze
== END | disposition home or self-care (01) ==
LOC: RAH 11:15
PROVIDERS: ATTEND Internal Medicine
DX: M47.22 Other spondylosis with radiculopathy, cervical region (principal); M48.02 Spinal stenosis, cervical region; M25.78 Osteophyte, vertebrae; G95.9 Disease of spinal cord, unspecified; R29.898 Other symptoms and signs involving the musculoskeletal system
CPT/HCPCS: 72141

== ENCOUNTER → 2025-05-08 | Outpatient (CLI) | payer OTHER | END | disposition home or self-care (01) | LOC: RAH 13:13 | PROVIDERS: ATTEND Internal Medicine Cardiovascular Disease | DX: Z13.6 Encounter for screening for cardiovascular disorders (principal) | CPT/HCPCS: 75571 ==